=== PATIENT | female | born 1975 | race Caucasian/White ===

== ENCOUNTER 2020-03-23 09:27 | Emergency (ER) | payer BC ==
[~2020-03-23] VITALS: Ht 157.5 cm; Wt 52.2 kg
[2020-03-23 09:30] VITALS: BP 130/86
[2020-03-23] MEDS ORDERED: FLUORESCEIN SOD 1 MG TEST STRIP OP ONE (10:15)
[2020-03-23] MEDS ORDERED: TETRACAINE 1% INJ 2 ML VIAL IJ ONE (10:15)
[2020-03-23] MEDS ORDERED: FLUORESCEIN SOD 1 MG TEST STRIP ONE (10:15)
== END 2020-03-23 10:37 | disposition home or self-care (01) ==
LOC: ER 09:27
DX: S05.02XA Injury of conjunctiva and corneal abrasion without foreign body, left eye, initial encounter (principal); E11.9 Type 2 diabetes mellitus without complications; X58.XXXA Exposure to other specified factors, initial encounter; Y93.89 Activity, other specified; Y92.89 Other specified places as the place of occurrence of the external cause; Y99.8 Other external cause status